=== PATIENT | male | born 1985 | race Caucasian/White ===

== ENCOUNTER 2017-09-17 14:27 | Emergency (ER) | payer SELFPAY ==
[2017-09-17] MEDS ORDERED: ONDANSETRON 4 MG TAB.RAPDIS PO ONE (15:50)
--- NOTE | 2017-09-17 15:52 | ER Document Report ---
ED Medical Screen (RME) - General Chief Complaint: Vomiting Stated Complaint: VOMITING Time Seen by Provider: 09/17/17 15:45 Notes: 32-year-old male patient reports he has not had much of an appetite for the past week. Has not been eating much. Last night he drank 8 beers over 5 hours with his brother. He states he does not normally drink alcohol. Since then he developed nausea and vomiting, reports he vomited at least 30 times. 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 I have greeted and performed a rapid initial assessment of this patient. A comprehensive ED assessment and evaluation of the patient, analysis of test results and completion of the medical decision making process will be conducted by additional ED providers. TRAVEL OUTSIDE OF THE [place] IN LAST 30 DAYS: No - Related Data Allergies/Adverse Reactions: acetaminophen [From Tylenol-Codeine] Allergy (Verified 09/17/17 14:29) codeine [From Tylenol-Codeine] Allergy (Verified 09/17/17 14:29) doxycycline Allergy (Verified 09/17/17 14:29) hydromorphone [From Dilaudid] Allergy (Verified 09/17/17 14:29) meperidine [From Demerol] Allergy (Verified 09/17/17 14:29) Home Medications: Current Home Medications No Home Medications 09/17/17 [History] Past Medical History - Social History Chew tobacco use (# tins/day): No Frequency of alcohol use: Occasional Drug Abuse: Marijuana - Past Medical History Cardiac Medical History: Reports: Hx Hypertension Renal/ Medical History: Denies: Hx Peritoneal Dialysis Past Surgical History: Reports: Hx Abdominal Surgery - hernia x 3. umbilical reconstruction, Hx Tonsillectomy Physical Exam - Vital signs Vitals: Temp Pulse Resp BP Pulse Ox 98.5 F 85 16 147/79 H 98 09/17/17 14:34 09/17/17 14:34 09/17/17 14:34 09/17/17 14:34 09/17/17 14:34 Course - Vital Signs Vital signs: Temp Pulse Resp BP Pulse Ox 98.5 F 85 16 147/79 H 98 09/17/17 14:34 09/17/17 14:34 09/17/17 14:34 09/17/17 14:34 09/17/17 14:34
[2017-09-17 16:52] LABS: ABSOLUTE BASOPHILS # (AUTO) 0.1 10^3/uL (0.0-0.2); ABSOLUTE EOSINOPHILS # (AUTO) 0.1 10^3/uL (0.0-0.6); ABSOLUTE LYMPHOCYTES (AUTO) 2.2 10^3/uL (0.5-4.7); ABSOLUTE NEUT (AUTO) 11.1 10^3/uL (1.7-8.2); BASOPHILS % (AUTO) 0.8 % (0-2); EOSINOPHILS % (AUTO) 0.5 % (0-6); HEMATOCRIT 47.5 % (37.9-51.0); HEMOGLOBIN 15.8 g/dL (13.5-17.0); LYMPHOCYTES % (AUTO) 15.3 % (13-45); MEAN CORPUSCULAR HEMOGLOBIN 29.4 pg (27.0-33.4); MEAN CORPUSCULAR HGB CONC 33.2 g/dL (32.0-36.0); MEAN CORPUSCULAR VOLUME 89 fl (80-97); MONOCYTES % (AUTO) 6.6 % (3-13); PLATELET COUNT 287 10^3/uL (150-450); RED BLOOD COUNT 5.37 10^6/uL (4.35-5.55); RED CELL DISTRIBUTION WIDTH 13.2 % (11.5-14.0); SEGMENTED NEUTROPHILS % (AUTO) 76.8 % (42-78); TOTAL CELLS COUNTED % (AUTO) 100 %; WHITE BLOOD COUNT 14.5 10^3/uL (4.0-10.5)
[2017-09-17 17:13] LABS: ALANINE AMINOTRANSFERASE 39 U/L (21-72); ALBUMIN 4.9 g/dL (3.5-5.0); ALKALINE PHOSPHATASE 104 U/L (38-126); ANION GAP 16 (5-19); ASPARTATE AMINO TRANSFERASE 24 U/L (17-59); BILIRUBIN,DIRECT 0.3 mg/dL (0.0-0.4); BILIRUBIN,TOTAL 0.8 mg/dL (0.2-1.3); BLOOD UREA NITROGEN 8 mg/dL (7-20); CALCIUM 10.5 mg/dL (8.4-10.2); CARBON DIOXIDE 25 mmol/L (22-30); CHLORIDE 104 mmol/L (98-107); GLUCOSE 82 mg/dL (75-110); LIPASE 53.6 U/L (23-300); POTASSIUM 3.9 mmol/L (3.6-5.0); SODIUM 145.1 mmol/L (137-145); TOTAL PROTEIN 7.4 g/dL (6.3-8.2)
[2017-09-17] MEDS ORDERED: ONDANSETRON ODT 4 MG TAB (6 TAB/ER DISP) PO PRN (17:51)
--- NOTE | 2017-09-17 17:51 | ER Document Report ---
ED GI/ - General Chief Complaint: Vomiting Stated Complaint: VOMITING Time Seen by Provider: 09/17/17 15:45 Mode of Arrival: Ambulatory Information source: Patient Notes: Pt is a 32 year old male who presents to the ER today for nausea and vomiting with some streaks of blood since 3am this morning. Pt states he drank about 8-9 beers last night for new years brigida, and has a history of pancreatitis. He states it is not due to alcohol, it was idiopathic. He admits to some intermittent mild upper abdominal pain but thinks it "may be just from throwing up." He denies fever/chills, diarrhea, cough or upper respiratory symptoms. He states he was vomiting for hours before seeing streaks of blood. TRAVEL OUTSIDE OF THE [place] IN LAST 30 DAYS: No - Related Data Allergies/Adverse Reactions: acetaminophen [From Tylenol-Codeine] Allergy (Verified 09/17/17 14:29) codeine [From Tylenol-Codeine] Allergy (Verified 09/17/17 14:29) doxycycline Allergy (Verified 09/17/17 14:29) hydromorphone [From Dilaudid] Allergy (Verified 09/17/17 14:29) meperidine [From Demerol] Allergy (Verified 09/17/17 14:29) Past Medical History - General Information source: Patient - Social History Smoking Status: Current Some Day Smoker Chew tobacco use (# tins/day): No Frequency of alcohol use: Occasional Drug Abuse: Marijuana Family History: Reviewed & Not Pertinent Patient has suicidal ideation: No Patient has homicidal ideation: No - Past Medical History Cardiac Medical History: Reports: Hx Hypertension Renal/ Medical History: Denies: Hx Peritoneal Dialysis Past Surgical History: Reports: Hx Abdominal Surgery - hernia x 3. umbilical reconstruction, Hx Tonsillectomy Review of Systems - Review of Systems Constitutional: No symptoms reported EENT: No symptoms reported Cardiovascular: No symptoms reported Respiratory: No symptoms reported Gastrointestinal: See HPI Genitourinary: No symptoms reported Male Genitourinary: No symptoms reported Musculoskeletal: No symptoms reported Skin: No symptoms reported Hematologic/Lymphatic: No symptoms reported Neurological/Psychological: No symptoms reported Physical Exam - Vital signs Vitals: Temp Pulse Resp BP Pulse Ox 98.5 F 85 16 147/79 H 98 09/17/17 14:34 09/17/17 14:34 09/17/17 14:34 09/17/17 14:34 09/17/17 14:34 - Notes Notes: PHYSICAL EXAMINATION: GENERAL: mildly ill appearing, but in no acute distress. HEAD: Atraumatic, normocephalic. EYES: Pupils equal round and reactive to light, extraocular movements intact, sclera anicteric, conjunctiva are normal. ENT: no blood in oropharynx NECK: Normal range of motion, supple without lymphadenopathy LUNGS: CTAB and equal. No wheezes rales or rhonchi. HEART: Regular rate and rhythm without murmurs ABDOMEN: Soft, mild LUQ tenderness. No guarding, no rebound BACK: no vertebral tenderness, normal ROM GI/: no CVA tenderness EXTREMITIES: Normal range of motion, no pitting edema. No cyanosis. NEUROLOGICAL: Cranial nerves grossly intact. Normal sensory/motor exams. PSYCH: Normal mood, normal affect. SKIN: Warm, Dry, normal turgor, no rashes or lesions noted Course - Re-evaluation Re-evalutation: 09/19/17 11:28 lipase is normal here, pt has not vomited here at all. Pt feels much better, no nausea with zofran given here. pt given IV fluids and was able to drink and eat crackers without any issues. Pt would like to go home at this time. - Vital Signs Vital signs: Temp Pulse Resp BP Pulse Ox 98.1 F 68 18 146/73 H 97 09/17/17 17:55 09/17/17 17:55 09/17/17 17:55 09/17/17 17:55 09/17/17 17:55 - Laboratory Result Diagrams: 09/17/17 16:30 09/17/17 16:30 Laboratory results interpreted by me: 09/17/17 09/17/17 16:30 16:30 WBC 14.5 H Absolute Neutrophils 11.1 H Sodium 145.1 H Calcium 10.5 H Discharge - Discharge Clinical Impression: Vomiting Qualifiers: Vomiting type: unspecified Vomiting Intractability: non-intractable Nausea presence: with nausea Qualified Code(s): R11.2 - Nausea with vomiting, unspecified Condition: Stable Disposition: HOME, SELF-CARE Instructions: Vomiting ([facility]) Additional Instructions: Return immediately for any new or worsening symptoms. Follow up with primary care provider, call tomorrow to make followup appointment. Prescriptions: Ondansetron [Zofran Odt 4 mg Tablet] 1 - 2 tab PO Q4H PRN #15 tab.rapdis PRN Reason: For Nausea/Vomiting Promethazine HCl [Phenergan 25 mg Tablet] 1 - 2 tab PO Q6H PRN #15 tablet PRN Reason:
[2017-09-17 17:57] VITALS: BP 146/73
== END 2017-09-17 17:58 | disposition home or self-care (01) ==
LOC: ER 14:27
DX: K92.0 Hematemesis (principal); R10.10 Upper abdominal pain, unspecified; I10 Essential (primary) hypertension; F17.200 Nicotine dependence, unspecified, uncomplicated; Z87.19 Personal history of other diseases of the digestive system; Z88.5 Allergy status to narcotic agent; Z88.6 Allergy status to analgesic agent; Z88.1 Allergy status to other antibiotic agents
CPT/HCPCS: 99284; 36415; 83690; 85025; 80053; S0119

== ENCOUNTER 2018-03-07 20:52 | Emergency (ER) | payer SELFPAY ==
[2018-03-07] MEDS ORDERED: LIDOCAINE 1% INJ-PF (10 MG/ML) 30 ML SDV INJ ONE (22:04)
[2018-03-07] MEDS ORDERED: BUPIVACAINE HCL 0.5%-EPI 1:200000 INJ/PF 30 ML VIAL INJ ONE (22:04)
--- NOTE | 2018-03-07 22:10 | RADIOLOGY REPORT (SQ) ---
EXAM DESCRIPTION: HAND RIGHT 3 VIEWS COMPLETED DATE/TIME: 03/07/2018 10:03 pm REASON FOR STUDY: lac COMPARISON: None. EXAM PARAMETERS: NUMBER OF VIEWS: Three views. TECHNIQUE: AP, lateral and oblique radiographic images acquired of the right hand. LIMITATIONS: None. FINDINGS: MINERALIZATION: Normal. BONES: No acute fracture or dislocation. No worrisome bone lesions. JOINTS: No effusions. SOFT TISSUES: Mild soft tissue swelling distal 2nd finger. No foreign body. OTHER: No other significant finding. IMPRESSION: MILD SOFT TISSUE SWELLING DISTAL 2ND FINGER. NO RADIOPAQUE FOREIGN BODY. NO FRACTURE O R OTHER BONY FINDINGS. TECHNICAL DOCUMENTATION: JOB ID: [id number] [employer]- All Rights Reserved Reading location - IP/workstation name: [email or web address]
[2018-03-07] MEDS ORDERED: ONDANSETRON 4 MG TAB.RAPDIS PO ONE (23:17)
--- NOTE | 2018-03-07 23:21 | ER Document Report ---
ED General - General Chief Complaint: Laceration Stated Complaint: FINGER LACERATION Time Seen by Provider: 03/07/18 21:29 TRAVEL OUTSIDE OF THE [place] IN LAST 30 DAYS: No - HPI Patient complains to provider of: Right index finger laceration Notes: Patient coming in for right index finger laceration occurred while he was washing dishes patient states his immunizations are up-to-date has normal cap refill and motion of the finger. Patient states it was heavy bleeding. Patient denies any fever chills nausea vomiting diarrhea - Related Data Allergies/Adverse Reactions: acetaminophen [From Tylenol-Codeine] Allergy (Verified 09/17/17 14:29) codeine [From Tylenol-Codeine] Allergy (Verified 09/17/17 14:29) doxycycline Allergy (Verified 09/17/17 14:29) hydromorphone [From Dilaudid] Allergy (Verified 09/17/17 14:29) meperidine [From Demerol] Allergy (Verified 09/17/17 14:29) Past Medical History - Social History Smoking Status: Current Every Day Smoker Chew tobacco use (# tins/day): No Frequency of alcohol use: None Drug Abuse: Marijuana Family History: Reviewed & Not Pertinent Patient has suicidal ideation: No Patient has homicidal ideation: No - Past Medical History Cardiac Medical History: Reports: Hx Hypertension Renal/ Medical History: Denies: Hx Peritoneal Dialysis Past Surgical History: Reports: Hx Abdominal Surgery - hernia x 3. umbilical reconstruction, Hx Tonsillectomy Review of Systems - Review of Systems Constitutional: No symptoms reported EENT: No symptoms reported Cardiovascular: No symptoms reported Respiratory: No symptoms reported Gastrointestinal: No symptoms reported Genitourinary: No symptoms reported Male Genitourinary: No symptoms reported Musculoskeletal: Other - Finger laceration Skin: No symptoms reported Hematologic/Lymphatic: No symptoms reported Neurological/Psychological: No symptoms reported Physical Exam - Vital signs Vitals: Temp Pulse Resp BP Pulse Ox 97.9 F 65 16 156/90 H 98 03/07/18 20:58 03/07/18 20:58 03/07/18 20:58 03/07/18 20:58 03/07/18 20:58 Interpretation: Normal - General General appearance: Appears well, Alert - HEENT Head: Normocephalic, Atraumatic Eyes: Normal Pupils: PERRL - Respiratory Respiratory status: No respiratory distress Chest status: Nontender Breath sounds: Normal Chest palpation: Normal - Cardiovascular Rhythm: Regular Heart sounds: Normal auscultation Murmur: No - Abdominal Inspection: Normal Distension: No distension Bowel sounds: Normal Tenderness: Nontender Organomegaly: No organomegaly - Back Back: Normal, Nontender - Extremities General upper extremity: Nontender, Normal color, Normal ROM, Normal temperature. No: Normal inspection - Laceration to the right index finger going across the DIP joint and the middle finger side more likely involving the nerve and possibly the artery General lower extremity: Normal inspection, Nontender, Normal color, Normal ROM , Normal temperature, Normal weight bearing. No: Dylan's sign - Neurological Neuro grossly intact: Yes Cognition: Normal Orientation: AAOx4 [place] Coma Scale Eye Opening: Spontaneous [place] Coma Scale Verbal: Oriented [place] Coma Scale Motor: Obeys Commands [place] Coma Scale Total: 15 Speech: Normal Motor strength normal: LUE, RUE, LLE, RLE Sensory: Normal - Psychological Associated symptoms: Normal affect, Normal mood - Skin Skin Temperature: Warm Skin Moisture: Dry Skin Color: Normal Course - Re-evaluation Re-evalutation: 03/08/18 04:11 Wound was explored and cleaned x-ray was negative for sutures were placed in the patient without difficulty except for the patient did have a vagal response passing out at the procedure was completed patient was monitored after this episode remained stable and was discharged home - Vital Signs Vital signs: Temp Pulse Resp BP Pulse Ox 97.9 F 55 L 16 141/86 H 99 03/07/18 20:58 03/07/18 23:30 03/07/18 23:30 03/07/18 23:30 03/07/18 23:30 Procedures - Laceration/Wound Repair Right 2nd digit Wound length (cm): 2 Wound's Depth, Shape: Linear Anesthetic type: 1% Lidocaine Volume Anesthetic (mLs): 2 - Mixture of lidocaine and Sensorcaine with epi Wound explored: Clean Irrigated w/ Saline (mLs): 200 Wound Repaired With: Sutures Suture Size/Type: 5:0 Number of Sutures: 4 Layer Closure?: No Post-procedure NV exam normal: Yes Complications: No Discharge - Discharge Clinical Impression: Finger laceration Qualifiers: Encounter type: initial encounter Finger: index finger Damage to nail status: unspecified Foreign body presence: without foreign body Laterality: right Qualified Code(s): S61.210A - Laceration without foreign body of right index finger without damage to nail, initial encounter Condition: Good Disposition: HOME, SELF-CARE Instructions: Antibiotic Ointment Protection ([facility]), Laceration Care ([facility]) Additional Instructions: Please keep the wound clean and dry for the next 48 hours at 48 hours he can do gentle handwashing. Please keep the wound bandaged please have the sutures removed in the next 7-10 days.
[2018-03-08 00:43] VITALS: BP 141/86
== END 2018-03-07 23:40 | disposition home or self-care (01) ==
LOC: ER 20:52
DX: S61.210A Laceration without foreign body of right index finger without damage to nail, initial encounter (principal); W25.XXXA Contact with sharp glass, initial encounter; Y93.G1 Activity, food preparation and clean up; Y92.009 Unspecified place in unspecified non-institutional (private) residence as the place of occurrence of the external cause; Z88.6 Allergy status to analgesic agent; F17.200 Nicotine dependence, unspecified, uncomplicated
CPT/HCPCS: 99283; 73130; J3490 ×2

== ENCOUNTER 2020-05-19 05:26 | Emergency (ER) | payer SELFPAY ==
[2020-05-19] MEDS ORDERED: KETOROLAC TROMETHAMINE INJ/PF 30 MG/1 ML SDV IV ONE (06:45)
--- NOTE | 2020-05-19 06:50 | ER Document Report ---
ED General - General Chief Complaint: Headache Stated Complaint: CHILLS/HEADACHE/SHORTNESS OF BREATH Time Seen by Provider: 05/19/20 06:09 Primary Care Provider: [facility] [Provider Group] - Follow up in 1 week Mode of Arrival: Ambulatory Information source: Patient TRAVEL OUTSIDE OF THE [place] IN LAST 30 DAYS: No - HPI Notes: Patient presents with headache. He states the headache woke him up in the middle of the night. He states he has a history of migraines with this 1 was different and that it was more intense. He states he did have one episode of vomiting. He states the headache is constant and throbbing. Is moderate to severe. It is worse with movement and better with rest. It does radiate throughout his head. It is primarily bilateral and frontal. He denies any recent trauma. No known tick bites. No COVID virus exposures. He has had no cough cold or congestion. - Related Data Allergies/Adverse Reactions: acetaminophen [From Tylenol-Codeine] Allergy (Verified 09/17/17 14:29) codeine [From Tylenol-Codeine] Allergy (Verified 09/17/17 14:29) doxycycline Allergy (Verified 09/17/17 14:29) hydromorphone [From Dilaudid] Allergy (Verified 09/17/17 14:29) meperidine [From Demerol] Allergy (Verified 09/17/17 14:29) Past Medical History - General Information source: Patient - Social History Smoking Status: Current Every Day Smoker Frequency of alcohol use: None Drug Abuse: None Family History: Reviewed & Not Pertinent - Past Medical History Cardiac Medical History: Reports: Hx Hypertension Renal/ Medical History: Denies: Hx Peritoneal Dialysis Past Surgical History: Reports: Hx Abdominal Surgery - hernia x 3. umbilical reconstruction, Hx Tonsillectomy Review of Systems - Review of Systems Constitutional: denies: Chills, Fever Cardiovascular: denies: Chest pain, Palpitations Respiratory: denies: Cough, Short of breath -: Yes All other systems reviewed and negative Physical Exam - Vital signs Vitals: Temp Pulse Resp BP Pulse Ox 97.6 F 60 16 126/90 H 100 05/19/20 05:48 05/19/20 05:48 05/19/20 05:48 05/19/20 05:48 05/19/20 05:48 Interpretation: Normal - General General appearance: Appears well, Alert - HEENT Head: Normocephalic, Atraumatic Eyes: Normal Pupils: PERRL - Respiratory Respiratory status: No respiratory distress Chest status: Nontender Breath sounds: Normal Chest palpation: Normal - Cardiovascular Rhythm: Regular Heart sounds: Normal auscultation Murmur: No - Abdominal Inspection: Normal Distension: No distension Bowel sounds: Normal Tenderness: Nontender Organomegaly: No organomegaly - Back Back: Normal, Nontender - Extremities General upper extremity: Normal inspection, Nontender, Normal color, Normal ROM, Normal temperature General lower extremity: Normal inspection, Nontender, Normal color, Normal ROM, Normal temperature, Normal weight bearing. No: Dylan's sign - Neurological Neuro grossly intact: Yes Cognition: Normal Orientation: AAOx4 [place] Coma Scale Eye Opening: Spontaneous [place] Coma Scale Verbal: Oriented [place] Coma Scale Motor: Obeys Commands [place] Coma Scale Total: 15 Speech: Normal Cranial nerves: Normal Cerebellar coordination: Normal. No: Rapid alt. movements Motor strength normal: LUE, RUE, LLE, RLE Additional motor exam normals: Equal pattern room attendant. No: Pronator drift Sensory: Normal - Psychological Associated symptoms: Normal affect, Normal mood - Skin Skin Temperature: Warm Skin Moisture: Dry Skin Color: Normal Course - Re-evaluation Re-evalutation: 05/19/20 08:09 Patient presents with headache. No signs of meningitis. No signs of any kind of intracranial process. I believe patient stable for discharge. - Vital Signs Vital signs: Temp Pulse Resp BP Pulse Ox 97.6 F 60 16 126/90 H 100 05/19/20 05:48 05/19/20 05:48 05/19/20 05:48 05/19/20 05:48 05/19/20 05:48 - Diagnostic Test Radiology reviewed: Image reviewed, Reports reviewed Discharge - Discharge Clinical Impression: Headache Qualifiers: Headache type: unspecified Headache chronicity pattern: acute headache Intractability: intractable Qualified Code(s): R51 - Headache Condition: Stable Disposition: HOME, SELF-CARE Instructions: Headache ([facility]), Toradol Injection ([facility]) Prescriptions: Ibuprofen [Motrin 600 Mg Tablet] 600 mg PO TID #15 tablet Forms: Return to Work Referrals: [facility] [Provider Group] - Follow up in 1 week
--- NOTE | 2020-05-19 07:18 | RADIOLOGY REPORT (SQ) ---
EXAM DESCRIPTION: CT HEAD WITHOUT IV CONTRAST COMPLETED DATE/TME: 05/19/2020 06:45 CLINICAL HISTORY: headache COMPARISON: None available TECHNIQUE: Axial CT of the head obtained from the skull apex to the skull base without contrast. FINDINGS: No acute intracranial hemorrhage identified. No mass, mass effect, shift of the midline, abnormal extra-axial fluid collection or CT evidence of acute ischemic change identified. The ventricular system is unremarkable. No acute abnormalities of the supratentorial white matter, basal ganglia, cerebellum, or brainstem. Minimal mucosal thickening of the paranasal sinuses. Mastoid air cells are well aerated. No skull fracture identified. Visualized orbits and globes are unremarkable. IMPRESSION: 1. No acute intracranial abnormality identified. This exam was performed according to our departmental dose-optimization program, which includes automated exposure control, adjustment of the mA and/or kV according to patient size and/or use of iterative reconstruction technique.
[2020-05-19 08:31] VITALS: BP 118/84
== END 2020-05-19 08:30 | disposition home or self-care (01) ==
LOC: ER 05:26
DX: R51 Headache (principal); R06.02 Shortness of breath; R11.10 Vomiting, unspecified; Z88.8 Allergy status to other drugs, medicaments and biological substances; F17.200 Nicotine dependence, unspecified, uncomplicated; I10 Essential (primary) hypertension
CPT/HCPCS: 99285; 96374; 70450; J1885